=== PATIENT | male | born 1985 | race Native Hawaiian/Other Pacific Islander ===

== ENCOUNTER 2016-08-02 09:46 | Emergency (ER) | payer OTHER ==
[~2016-08-02] VITALS: Ht 190.5 cm; Wt 83.9 kg
[2016-08-02 10:27] LABS: PLATELET COUNT 273 K/uL (142-355)
[2016-08-02 10:30] LABS: POTASSIUM 3.7 mmol/L (3.6-5.2); SODIUM 136 mmol/L (136-145)
== END 2016-08-02 10:55 | disposition home or self-care (01) ==
LOC: ED 09:46
DX: J02.0 Streptococcal pharyngitis (principal); J01.00 Acute maxillary sinusitis, unspecified; H60.8X2 Other otitis externa, left ear
CPT/HCPCS: 36415; 80053; 85027; 87804; 87880; 99283

== ENCOUNTER 2017-01-04 12:25 | Emergency (ER) | payer OTHER ==
[~2017-01-04] VITALS: Ht 190.5 cm; Wt 97.1 kg
== END 2017-01-04 14:00 | disposition home or self-care (01) ==
LOC: ED 12:25
DX: M25.511 Pain in right shoulder (principal)
CPT/HCPCS: 99283

== ENCOUNTER 2022-06-30 09:14 | Outpatient (CLI) | payer OTHER ==
[~2022-06-30 09:14] MED LIST: ALBU90AE13 INH; IBUPROFEN200 M1 PO; LEVAQUIN250 MG PO; PREDNISONE10 MG PO; ZITHROMAX500 MG PO
[2022-06-30 09:38] LABS: PLATELET COUNT 317 K/uL (142-355)
[2022-06-30 10:03] LABS: POTASSIUM 3.4 mmol/L (3.6-5.2)
== END 2022-06-30 20:42 | disposition home or self-care (01) ==
LOC: LAB 09:14
PROVIDERS: ATTEND Nurse Practitioner
DX: R53.83 Other fatigue (principal); Z13.21 Encounter for screening for nutritional disorder
CPT/HCPCS: 36415; 80053; 82306; 82607; 84402; 84403; 84436; 84443; 85027